=== PATIENT | female | born 1935 | race African-American/Black ===

== ENCOUNTER 2018-11-20 18:22 | Inpatient (IN) | payer BC, MEDICARE ==
[~2018-11-20] VITALS: Ht 160 cm; Wt 77.1 kg
[~2018-11-20 18:22] MED LIST: GABA1TAB
[2018-11-20 22:35] LABS: CLARITY URINE CLEAR (CLEAR); COLOR URINE YELLOW (YELLOW); KETONES URINE NEGATIVE (NEGATIVE); LEUKOCYTE ESTERASE URINE TRACE (NEGATIVE); NITRITE URINE NEGATIVE (NEGATIVE); OCCULT BLOOD URINE NEGATIVE (NEGATIVE); PH URINE 5.5 (4.5-8.0); PROTEIN URINE 2+ (NEGATIVE); SPECIFIC GRAVITY URINE 1.014 (1.005-1.030); UROBILINOGEN URINE 0.2 E.U./dL (0.2-1.0)
[2018-11-20 22:44] LABS: *AMPHETAMINES SCREEN URINE NEGATIVE (NEGATIVE); *BARBITURATES SCREEN URINE NEGATIVE (NEGATIVE); *BENZODIAZEPINES SCREEN URINE NEGATIVE (NEGATIVE); *COCAINE SCREEN URINE NEGATIVE (NEGATIVE); METHADONE URINE SCREEN NEGATIVE (NEGATIVE)
[2018-11-20 22:45] LABS: CANNABINOID URINE SCREEN NEGATIVE (NEGATIVE); OPIATES URINE SCREEN NEGATIVE (NEGATIVE); PHENCYCLIDINE URINE SCREEN NEGATIVE (NEGATIVE)
[2018-11-20 23:28] LABS: CHLORIDE 111 mEq/L (98-107)
[2018-11-20 23:31] LABS: BASOPHILS % 1.3 % (0.0-2.0); EOSINOPHILS % 6.8 % (0.0-5.0); HEMATOCRIT. 42.4 % (36.0-48.0); LYMPHOCYTES % 20.6 % (20.0-50.0); MEAN CORPUSCULAR HEMOGLOBIN 31.5 pg (28.0-32.0); MEAN CORPUSCULAR VOLUME 88.8 fL (81.0-99.0); MONOCYTES % 6.3 % (2.0-8.0); PLATELET 161 x1000/uL (130-400); RED BLOOD CELL COUNT 4.78 mill/uL (4.2-5.4)
[2018-11-20 23:32] LABS: ETHANOL BLOOD < 10 mg/dL
[2018-11-21] MEDS ORDERED: CEFTRIAXONE 1 G PREMIX 50 ML IV ONE (01:45)
[2018-11-21] MEDS ORDERED: AZITHROMYCIN 500 MG in DEXT 5% WATER 250 ML IV SCH (01:45)
[2018-11-21 04:30] VITALS: BP 149/82
[2018-11-21] MEDS ORDERED: AMLO10TA80 PO (05:05)
[2018-11-21] MEDS ORDERED: HYDR-4134 PO (05:05)
[2018-11-21] MEDS ORDERED: TIMO5DRO32 OP (05:05)
[2018-11-21] MEDS ORDERED: ONDANSETRON HCL 4MG/2ML INJ IV PRN (06:00)
[2018-11-21] MEDS ORDERED: IPRATROPIUM/ALBUTEROL 0.5-3(2.5)MG/3ML NEB HHN PRN (06:00)
[2018-11-21] MEDS ORDERED: ACETAMINOPHEN 325MG TABLET PO PRN (06:00)
[2018-11-21] MEDS ORDERED: HYDRALAZINE HCL 25MG TABLET PO SCH (06:30)
[2018-11-21 08:00] VITALS: BP 117/63
[2018-11-21] MEDS: HYDRALAZINE HCL 25MG TABLET PO SCH ×2 (08:30→14:16)
[2018-11-21] MEDS: TIMOLOL MALEATE 0.5% OPHTH DROPS 5ML EACHEYE SCH ×3 (09:00→21:18)
[2018-11-21] MEDS: FAMOTIDINE 20MG TABLET PO SCH (09:17)
[2018-11-21] MEDS: AMLODIPINE 5MG TABLET PO SCH ×2 (09:17→21:05)
[2018-11-21] MEDS: ENOXAPARIN 30MG/0.3ML SYR SUBCUT SCH (09:18)
[2018-11-21] MEDS: DEXT 5%/0.45% NACL 1000ML 1,000 ML IV SCH (10:00)
[2018-11-21 12:00] VITALS: BP 153/78
[2018-11-21 16:00] VITALS: BP_SYST 118; BP_SYST 156; BP_SYST 94; BP_DIAS 57; BP_DIAS 59; BP_DIAS 72
[2018-11-21 20:00] VITALS: BP 143/71
[2018-11-21] MEDS: HYDRALAZINE HCL 50MG TABLET PO SCH (21:05)
[2018-11-21] MEDS: ZOLPIDEM TARTRATE 5MG TABLET PO PRN (22:11)
[2018-11-22 00:47] VITALS: BP 141/72
[2018-11-22] MEDS ORDERED: CEFTRIAXONE 1 G PREMIX 50 ML IV SCH (02:00)
[2018-11-22] MEDS: DEXT 5%/0.45% NACL 1000ML 1,000 ML IV SCH (02:38)
[2018-11-22] MEDS ORDERED: AZITHROMYCIN 500 MG in DEXT 5% WATER 250 ML IV SCH (03:00)
[2018-11-22 04:00] VITALS: BP_SYST 118; BP_SYST 120; BP_SYST 132; BP_DIAS 60; BP_DIAS 69
[2018-11-22] MEDS: HYDRALAZINE HCL 50MG TABLET PO SCH ×3 (06:11→21:45)
[2018-11-22 07:23] LABS: FOLIC ACID (FOLATE) SERUM 5.2 ng/mL (>5.38)
[2018-11-22 07:28] LABS: BASOPHILS % 1.2 % (0.0-2.0); EOSINOPHILS % 7.1 % (0.0-5.0); HEMOGLOBIN. 13.5 g/dL (12.0-16.0); MEAN CORPUSCULAR HEMOGLOBIN 30.8 pg (28.0-32.0); MEAN CORPUSCULAR VOLUME 88.8 fL (81.0-99.0); MEAN PLATELET VOLUME 9.2 fl (7.4-10.4); MONOCYTES % 8.5 % (2.0-8.0); NEUTROPHILS % 61.2 % (40.0-76.0); PLATELET 165 x1000/uL (130-400); RED BLOOD CELL COUNT 4.39 mill/uL (4.2-5.4); RED CELL DISTRIBUTION WIDTH 14.6 % (11.6-14.6)
[2018-11-22 08:00] VITALS: BP 102/51
[2018-11-22] MEDS: AMLODIPINE 5MG TABLET PO SCH ×2 (09:00→21:45)
[2018-11-22] MEDS: TIMOLOL MALEATE 0.5% OPHTH DROPS 5ML EACHEYE SCH ×3 (09:00→21:45)
[2018-11-22] MEDS: FAMOTIDINE 20MG TABLET PO SCH (09:10)
[2018-11-22] MEDS: ENOXAPARIN 30MG/0.3ML SYR SUBCUT SCH (09:11)
[2018-11-22 09:20] LABS: CREATINE KINASE 97 IU/L (26-192)
[2018-11-22 12:00] VITALS: BP 126/78
[2018-11-22 16:00] VITALS: BP_SYST 100; BP_SYST 117; BP_SYST 136; BP_DIAS 48; BP_DIAS 53; BP_DIAS 67
[2018-11-22 20:00] VITALS: BP_SYST 151; BP_SYST 161; BP_SYST 165; BP_DIAS 73; BP_DIAS 83; BP_DIAS 86
[2018-11-22] MEDS: ZOLPIDEM TARTRATE 5MG TABLET PO PRN (21:55)
[2018-11-23] VITALS (8 sets, daily range): BP systolic 99–155; BP diastolic 52–88
[2018-11-23] MEDS: DEXT 5%/0.45% NACL 1000ML 1,000 ML IV SCH (02:00)
[2018-11-23] MEDS: HYDRALAZINE HCL 50MG TABLET PO SCH ×2 (05:49→14:00)
[2018-11-23] MEDS: ENOXAPARIN 30MG/0.3ML SYR SUBCUT SCH (09:00)
[2018-11-23] MEDS: AMLODIPINE 5MG TABLET PO SCH (10:01)
[2018-11-23] MEDS: FAMOTIDINE 20MG TABLET PO SCH (10:01)
[2018-11-23] MEDS: TIMOLOL MALEATE 0.5% OPHTH DROPS 5ML EACHEYE SCH (10:02)
== END 2018-11-23 15:45 | disposition home health service (06) | DRG 684 ==
LOC: ER 18:22 → 7WST 11-21 01:30 → EDBEDREQ 11-21 01:31 → EDBEDREQTM 11-21 01:31 → ENRESERV 11-21 02:24 → ER 11-21 04:00 → 7WST 11-21 17:27
PROVIDERS: ADMIT Family Medicine Adult Medicine; ATTEND Family Medicine Adult Medicine
DX: I12.9 Hypertensive chronic kidney disease with stage 1 through stage 4 chronic kidney disease, or unspecified chronic kidney disease (principal); R53.1 Weakness; R15.9 Full incontinence of feces; E53.8 Deficiency of other specified B group vitamins; E78.00 Pure hypercholesterolemia, unspecified; E78.5 Hyperlipidemia, unspecified; G89.29 Other chronic pain; H40.9 Unspecified glaucoma; H54.62 Unqualified visual loss, left eye, normal vision right eye; Z60.2 Problems related to living alone; K21.9 Gastro-esophageal reflux disease without esophagitis; N18.9 Chronic kidney disease, unspecified; M48.061 Spinal stenosis, lumbar region without neurogenic claudication; I95.1 Orthostatic hypotension; M48.02 Spinal stenosis, cervical region; R91.8 Other nonspecific abnormal finding of lung field; M47.812 Spondylosis without myelopathy or radiculopathy, cervical region; M25.78 Osteophyte, vertebrae; Z79.899 Other long term (current) drug therapy; Z86.73 Personal history of transient ischemic attack (TIA), and cerebral infarction without residual deficits; Z90.49 Acquired absence of other specified parts of digestive tract; Z90.710 Acquired absence of both cervix and uterus
CPT/HCPCS: 36415; 70551; 71045; 72141; 72148; 80048; 80305; 80320; 82140; 82550; 82607; 82746; 83735; 83880; 84443; 84484; 93005; 93306; 97162; 97166; 99285; J0456; J0696; J1650; J7060; G0480